=== PATIENT | female | born 1945 | race Caucasian/White ===

== ENCOUNTER → 2020-10-24 | Outpatient (CLI) | payer MEDICARE, OTHER | LOC: LAB 10:23 | PROVIDERS: Internal Medicine Nephrology | DX: N18.9 Chronic kidney disease, unspecified (principal) | CPT/HCPCS: 36415; 80053; 81001; 82570; 84156 ==

== ENCOUNTER 2021-01-09 09:54 | Emergency (ER) | payer MEDICARE, OTHER ==
[2021-01-09 11:27] LABS: HEMOGLOBIN 16.4 gm/dl (12.3-15.3); RED BLOOD COUNT 5.21 M/UL (4.00-5.10); WHITE BLOOD COUNT 8.3 K/UL (4.5-11.0)
== END 2021-01-09 12:24 | disposition home or self-care (01) ==
LOC: ER1 09:54
PROVIDERS: Internal Medicine
DX: M50.30 Other cervical disc degeneration, unspecified cervical region (principal); R20.0 Anesthesia of skin; E11.9 Type 2 diabetes mellitus without complications; I10 Essential (primary) hypertension; F17.210 Nicotine dependence, cigarettes, uncomplicated; Z95.1 Presence of aortocoronary bypass graft
CPT/HCPCS: 70450; 71046; 72125; 80053; 84484; 85025; 93005; 99284

== ENCOUNTER → 2021-05-20 | Outpatient (CLI) | payer MEDICARE, OTHER | LOC: KOH-I 08:32 | DX: M54.2 Cervicalgia (principal); M79.602 Pain in left arm; R20.2 Paresthesia of skin; E04.2 Nontoxic multinodular goiter; I65.23 Occlusion and stenosis of bilateral carotid arteries; E78.5 Hyperlipidemia, unspecified; R42 Dizziness and giddiness; R09.89 Other specified symptoms and signs involving the circulatory and respiratory systems; M50.30 Other cervical disc degeneration, unspecified cervical region; M50.21 Other cervical disc displacement, high cervical region; M48.02 Spinal stenosis, cervical region; M25.78 Osteophyte, vertebrae | CPT/HCPCS: 72141; 76536; 93880 ==

== ENCOUNTER → 2021-07-05 | Outpatient (CLI) | payer MEDICARE, OTHER | LOC: CT 06-18 11:30 | DX: I65.29 Occlusion and stenosis of unspecified carotid artery (principal) | CPT/HCPCS: 36415; 70498; 82565; 84520; Q9967 ==

== ENCOUNTER → 2021-07-09 | Outpatient (CLI) | payer MEDICARE, OTHER | LOC: HEART 5 06-17 08:30 | DX: I25.10 Atherosclerotic heart disease of native coronary artery without angina pectoris (principal); R53.83 Other fatigue; I08.1 Rheumatic disorders of both mitral and tricuspid valves; I27.20 Pulmonary hypertension, unspecified | CPT/HCPCS: 93306 ==

== ENCOUNTER → 2021-09-13 | Day surgery (SDC) | payer MEDICARE, OTHER ==
[~2021-09-13] VITALS: Ht 167.6 cm; Wt 82.6 kg
[~2021-09-13] MED LIST: AMLODIPINE BESY10 MG PO; ATORVASTATIN CA80 MG PO; BUMETANIDE1 MG PO; CALCIUM D-GLUC500 MG PO; CATAPRES 0.1MG0.1 MG PO; FISH OIL; GABAPENTIN100 MG PO; JARDIANCE10 MG PO; LIDOCAINE; LOW DOSE ASPIRI81 MG PO; MELATONIN5 MG PO; MONTELUKAST SOD10 MG PO; MULTI-VITAMIN1 EACH PO; POTASSIUM CHLORIDE; TRICOR 145 MG145 MG PO; TYLENOL325 MG PO; VITAMIN D3125 MCG PO; VITAMIN E1000 UNI1 PO
== END | disposition home or self-care (01) ==
LOC: OR 07:30
DX: G56.22 Lesion of ulnar nerve, left upper limb (principal); I11.0 Hypertensive heart disease with heart failure; I50.9 Heart failure, unspecified; E78.5 Hyperlipidemia, unspecified; I25.10 Atherosclerotic heart disease of native coronary artery without angina pectoris; J44.9 Chronic obstructive pulmonary disease, unspecified; M19.90 Unspecified osteoarthritis, unspecified site; E07.9 Disorder of thyroid, unspecified; E11.40 Type 2 diabetes mellitus with diabetic neuropathy, unspecified; Z88.8 Allergy status to other drugs, medicaments and biological substances; Z79.1 Long term (current) use of non-steroidal anti-inflammatories (NSAID); Z79.82 Long term (current) use of aspirin; Z79.891 Long term (current) use of opiate analgesic; Z79.899 Other long term (current) drug therapy; Z85.828 Personal history of other malignant neoplasm of skin; Z95.1 Presence of aortocoronary bypass graft; Z80.9 Family history of malignant neoplasm, unspecified
CPT/HCPCS: 82962; J0171; J0690; J1100; J2001; J2704; J2795; J7120